=== PATIENT | male | born 1960 | race Caucasian/White ===

== ENCOUNTER 2018-12-26 05:29 | Day surgery (SDC) | payer BC ==
[2018-12-24 14:24] VITALS: BMI 27.1
[2018-12-26] VITALS (12 sets, daily range): BP systolic 111–147; BP diastolic 62–85; PULSE 67–87; RESP 11–20; Ht 170.2 cm; Wt 76.6 kg
[~2018-12-26] VITALS: Ht 170.2 cm; Wt 76.6 kg
[2018-12-26] MEDS ORDERED: CEFAZOLIN 2 GM/50 ML (PMX) 50 ML IVPB ONE (06:00)
[2018-12-26] MEDS ORDERED: SOD CHLORIDE 0.9% 1,000 ML IV SCH (06:00)
[2018-12-26] MEDS ORDERED: LIDOCAINE 2% (MDV) 20 ML INJ ONE (06:53)
[2018-12-26] MEDS ORDERED: BUPIVACAINE 0.25% (MPF) 30 ML INJ ONE (06:53)
[2018-12-26] MEDS ORDERED: BUPIVACAINE 0.5% (SDV) 30 ML INJ ONE (06:53)
[2018-12-26] MEDS ORDERED: DESFLURANE 15 MIN ONE (07:00)
[2018-12-26] MEDS ORDERED: ASPI-817 PO (07:04)
[2018-12-26] MEDS ORDERED: AMLO-147 PO (07:04)
--- NOTE | 2018-12-26 07:25 | PREAC ---
Date/Time of Note Date/Time of Note DATE: 12/26/18 TIME: 07:24 Anesthesia Eval and Record Evaluation Time Pre-Procedure Interview DATE: 12/26/18 TIME: 07:24 Age 58 Sex male NPO: 8 hrs Preoperative diagnosis scalp mass Planned procedure EXCISION SCALP MASS Past Medical History Past Medical History: Includes Cardio: HTN GI: GERD Surgery & Anesthesia Issues No known issue Meds Anticoagulation: No Beta Chelo within 24 hr: No Reason Beta Chelo not given: Pt. not on B-Chelo Reported Medications Aspirin* (Aspirin* EC) 81 Mg Tablet.dr, 81 MG PO DAILY 12/26/18 Amlodipine Besylate* (Amlodipine Besylate*) 10 Mg Tablet, 10 MG PO DAILY 12/26/18 Current Medications Sodium Chloride 1,000 ml @ 75 mls/hr [id number] IV ; Start 12/26/18 at 06:00; Stop 12/26/18 at 19:19 Meds reviewed: Yes Allergies Coded Allergies: No Known Drug Allergies (Unverified Allergy, Unknown, 12/25/18) Allergies Reviewed: Yes Labs/Studies Labs Reviewed: Reviewed by anesthesiologist test: N/A Pre-procedure Exam Last vitals Vital Signs Date Temp Pulse Resp B/P (MAP) Pulse Ox O2 O2 Flow FiO2 Time Delivery Rate 12/26/18 98.7 67 18 147/78 18 Room Air 06:17 (101) Airway: Adequate mouth opening, Adequate thyromental dist Mallampati: Mallampati II Teeth: Normal Lung: Normal Heart: Normal ASA Physical Status ASA physical status: 2 Emergency: None Planned Anesthetic General/MAC: LMA Planned Pain Management Parenteral pain med Pre-operative Attestations Prior to commencing anesthesia and surgery, the patient was re-evaluated, there was verification of: *The patient's identity *The results of appropriate recent lab work and preoperative vital signs *The above evaluation not changing prior to induction *Anesthetic plan, risk benefits, alternative and complications discussed with patient/family; questions answered; patient/family understands, accepts and wishes to proceed. Chung Villarreal M.D. Dec 26, 2018 07:25
[2018-12-26] MEDS ORDERED: FENTAnyl 50 MCG/ML VIAL IV PRN ×3 (07:30)
[2018-12-26] MEDS ORDERED: MEPERIDINE 25 MG INJ IV PRN (07:30)
[2018-12-26] MEDS ORDERED: ONDANSETRON 4 MG INJ IV PRN (07:30)
[2018-12-26] MEDS ORDERED: MIDAZOLAM 1 MG/ML 2 ML INJ IV PRN (07:30)
[2018-12-26] MEDS ORDERED: EPHEDrine SULFATE 50 MG/5 ML SYG IV PRN (07:30)
[2018-12-26] MEDS ORDERED: TRIMETHOBENZAMIDE 100 MG/ML VIAL IM PRN (07:30)
[2018-12-26] MEDS ORDERED: HYDROmorphONE 1 MG/5 ML IV SYRINGE IV PRN ×3 (07:30)
[2018-12-26] MEDS ORDERED: ALBUTEROL 0.083% (NEB) 2.5 MG/3 ML AMP HHN PRN (07:30)
[2018-12-26] MEDS ORDERED: LABETALOL HCL 20MG INJ IV PRN (07:30)
[2018-12-26] MEDS ORDERED: OXYCODONE/ACETAMINOPHEN (5/325) TAB PO PRN ×2 (07:30)
[2018-12-26] MEDS ORDERED: DIPHENHYDRAMINE 50 MG INJ IV PRN (07:30)
[2018-12-26] MEDS ORDERED: IPRATROPIUM (NEB) 0.5 MG/2.5 ML AMP HHN PRN (07:30)
[2018-12-26] MEDS ORDERED: hydrALAzine 20 MG INJ IV PRN (07:30)
[2018-12-26] MEDS ORDERED: PROPOFOL 20 ML ONE (07:44)
[2018-12-26] MEDS ORDERED: GLYCOPYRROLATE 0.4 MG INJ ONE (07:44)
[2018-12-26] MEDS ORDERED: NEOSTIGMINE 3 MG/3 ML SYRINGE ONE (07:44)
[2018-12-26] MEDS ORDERED: ROCURONIUM 50 MG INJ ONE (07:44)
[2018-12-26] MEDS ORDERED: CEFAZOLIN 1 GM INJ ONE (07:44)
[2018-12-26] MEDS ORDERED: FENTAnyl 50 MCG/ML VIAL ONE (07:46)
[2018-12-26] MEDS ORDERED: ONDANSETRON 4 MG INJ ONE (07:46)
[2018-12-26] MEDS ORDERED: MIDAZOLAM 1 MG/ML 2 ML INJ ONE (07:46)
[2018-12-26] MEDS ORDERED: DEXAMETHASONE 4 MG/ML 5 ML INJ ONE (07:46)
--- NOTE | 2018-12-26 08:28 | OPR ---
Date/Time of Note Date/Time of Note DATE: 12/26/18 TIME: 08:26 Operative Report Procedure Date: Dec 26, 2018 Preoperative Diagnosis posterior scalp mass Postoperative Diagnosis same Operation/Procedure Performed 1. excision of scalp mass 3 cm mass 3 cm incision 2. localized adjacent tissue transfer with the use of skin flaps 6 sq cm defect in the scalp 3. therapeutic injection of subcutaneous local anesthesia Surgeon see signature line [employer] none Anesthesia Type: general Estimated Blood Loss: 10 - 50 ml's Transfusion none Specimen scalp mass Grafts/Implants none Complications none Pt Condition Post Procedure: stable Indications This is a 58-year-old male with a posterior scalp mass that symptomatic and painful. He requests surgical excision of the mass. Risks alternatives benefits and percent were discussed the patient. In particular potential complications including but not limited to bleeding infection wound dehiscence scar alopecia were discussed the patient. Patient expressed understanding and consents to the operation. Procedure Description Patient is taken to the OR and prepped and draped in usual sterile fashion. Surgical time was performed. IV antibiotics were given. Elliptical incision was made with a 15 blade over the scalp mass. Dissection with cautery was carried out the mass and the mass was circumferentially excised. Good hemostasis established in the surgical bed. However due to tissue defect localized adjacent to his transfer with these of skin flaps was performed. Multilayer closure with interrupted 3-0 Vicryl running 4-0 Monocryl. Therapeutic subcutaneous local anesthesia was injected at the incision site. Dry dressings were applied Jayashree CARTY Dec 26, 2018 08:28
[2018-12-26] MEDS ORDERED: HYDROCODONE/APAP (5/325) TAB PO ONE (08:30)
--- NOTE | 2018-12-26 08:49 | PAC ---
Date/Time of Note Date/Time of Note DATE: 12/26/18 TIME: 08:49 Post-Anesthesia Notes Post-Anesthesia Note Last documented vital signs Vital Signs Date Temp Pulse Resp B/P (MAP) Pulse Ox O2 O2 Flow FiO2 Time Delivery Rate 12/26/18 98.7 67 18 147/78 18 Room Air 06:17 (101) Activity: WNL Respiratory function: WNL Cardiovascular function: WNL Mental status: Baseline Pain reasonably controlled: Yes Hydration appropriate: Yes Nausea/Vomiting absent: Yes Chung Villarreal M.D. Dec 26, 2018 08:49
== END 2018-12-26 10:20 | disposition home or self-care (01) ==
LOC: SDS 05:29
PROVIDERS: ATTEND Surgery
DX: D23.4 Other benign neoplasm of skin of scalp and neck (principal); L72.0 Epidermal cyst; I10 Essential (primary) hypertension; K21.9 Gastro-esophageal reflux disease without esophagitis
CPT/HCPCS: 14020; 88307; J0690; J1100; J1170; J2250; J2405; J2710; J3010; Z7512; Z7610